=== PATIENT | female | born 1965 | race Caucasian/White ===

== ENCOUNTER → 2018-02-26 07:51 | Outpatient (CLI) | payer OTHER, SELFPAY ==
--- NOTE | 2018-02-26 | DI.MG.S_ITS ---
BILATERAL DIGITAL SCREENING MAMMOGRAM 3D/2D WITH CAD: 02/26/2018 CLINICAL: Routine screening. Family history of breast cancer. Comparison is made to exams dated: 09/06/2013 mammogram, 03/26/2012 mammogram, and 04/07/2010 mammogram - Located Within [facility]. The tissue of both breasts is heterogeneously dense. This may lower the sensitivity of mammography. Current study was also evaluated with a Computer Aided Detection (CAD) system. No significant masses, calcifications, or other findings are seen in either breast. There has been no significant interval change. IMPRESSION: NEGATIVE There is no mammographic evidence of malignancy. A 1 year screening mammogram is recommended. This exam was interpreted at Station ID: [id number]. NOTE: For mammograms, a report in lay terms will be sent to the patient. Approximately 15% of breast malignancies will not be visualized mammographically. In the management of a palpable breast mass, a negative mammogram must not discourage biopsy of a clinically suspicious lesion. Electronically Signed By: Kemal fuller/mireya:02/26/2018 21:16:45 letter sent: Normal Exam ACR BI-RADS Category 1: Negative [id number]
== END ==
PROVIDERS: PCP Family Medicine; Visit Provider Family Medicine
DX: Z12.31 Encounter for screening mammogram for malignant neoplasm of breast (principal); Z80.3 Family history of malignant neoplasm of breast
CPT/HCPCS: 77063; 77067

== ENCOUNTER 2019-06-10 16:38 | Observation (INO) | payer OTHER, SELFPAY ==
[2019-06-10] VITALS (8 sets, daily range): BP systolic 138–178; BP diastolic 77–94; PULSE 52–82; RESP 10–20; TEMP 36.2–36.6; O2SAT 97–99
--- NOTE | 2019-06-10 16:49 | DI.RAD.S_ITS ---
PROCEDURE: XR FINGER RT MIN 2V INDICATIONS: crush injury tip of 5th digit, cutting firewood TECHNIQUE: AP hand, 2 views of the fifth finger(s) acquired. COMPARISON: None. FINDINGS: Bones: No fractures or dislocations. No suspicious bony lesions. Soft tissues: No suspicious soft tissue calcifications. Soft tissue laceration is present within the distal tip of the fifth digit. IMPRESSION: Laceration of the fifth digit soft tissue tuft without visualized fracture. Dictated by: Scarlett Moreno M.D. on 06/10/2019 at 16:06 Approved by: Scarlett Moreno M.D. on 06/10/2019 at 16:08
[2019-06-10] MEDS: LIDOCAINE 2% INJ MDV 20 ML INJ (17:20)
[2019-06-10] MEDS: CEFAZOLIN 2 GM/100 ML FROZ.PIGGY IV (18:14)
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
--- NOTE | 2019-06-10 19:57 | PM.OP.1 ---
Operative Date/Time/Diagnoses Date of procedure: 06/10/19 Time of procedure: 19:58 Pre-op diagnosis: Right small finger tip amputation Post-op diagnosis: same Procedure & Clinicians Procedure: Right small finger completion amputation and closure Same procedure as scheduled: Yes Indications: This is a 54-year-old who got her right small finger caught in a trip pressure redder and had a partial amputation of her small finger. She is brought the operating room for completion amputation and closure. Surgeon: Goldie Roque Click Yes if Unassisted: Yes Anesthesia Type: Sedation and Local Operative Notes Findings: Contaminated open distal phalanx with amputation, and and we closed with a completion amputation. Closure Type: primary Specimen(s): none sent Estimated Blood Loss (mL): 20 Blood products transfused: none Tourniquet time (min): 6 Procedure in detail: Patient was brought to the operating room. IV antibiotics were given. An time-out was performed and the procedure was carefully confirmed. Patient's right upper extremity was prepped draped standard sterile fashion. The 5th finger was meticulously irrigated with normal saline. Patient was sedated. A dense digital block was performed with Marcaine without epinephrine. Good anesthesia was achieved. The distal tip was then meticulously irrigated with normal saline and scrubbed. There was some bleeding from the distal nail bed and the distal neurovascular bundles and the tourniquet was briefly elevated for a total of 6 minutes. The distal phalanx was carefully shortened with a bone cutter. There was a small amount of residual nail germinal matrix noted and it was felt that she could potentially have a small residual nail. The soft tissue and flaps were meticulously mobilized and closed without tension. Interrupted nylon was used for closure. The neurovascular bundles were carefully shortening. The wound was carefully dressed with Xeroform sterile 4x4s Oniel and a Coban. The patient was placed in a splint to protect her distal tip. She tolerated the procedure well. Complications: none Post-operative Condition: stable Disposition: same day surgery Plan for aftercare: Elevate right hand as tolerated. Take oral antibiotics for 1 week. Return to clinic in 10 days for a wound check and possible partial spur or complete suture removal. Protect tip with a splint.
[2019-06-10] MEDS: LACTATED RINGERS 1,000 ML 42 ML IV (20:00)
[2019-06-10] MEDS: CEFAZOLIN 1 GM/50 ML FROZ.PIGGY IV (20:00)
--- NOTE | 2019-06-10 20:38 | ED_ITS ---
HPI - Extremity Injury (Upper) <SENIA Cobos - Last Filed: 06/10/19 20:52> General Chief Complaint: Extremity Injury, Upper Stated Complaint: RIGHT HAND LITTLE FINGER GOT SMASHED Time Seen by Provider: 06/10/19 16:51 Source: patient and family Mode of arrival: Ambulatory Limitations: no limitations History of Present Illness HPI narrative: The patient is a 54-year-old female nonsmoker with history of hypothyroid and neutropenia who presents with a chief complaint of an injury to her right 5th digit she states it got crushed in a wood splitter she states that the tip of her finger was ripped off. She states that her tetanus is up-to-date. She denies any drug allergies she is not taking any for the pain. She presents with her she states that other than the wood splinter injury to the tip, she has no injuries to her finger or hand. Related Data Home Medications Medication Instructions Recorded Confirmed levothyroxine 88 mcg PO DAILY 06/10/19 06/10/19 Previous Rx's Medication Instructions Recorded cephalexin [Keflex] 500 mg PO TID #20 cap 06/10/19 hydrocodone-acetaminophen [Alhambra] 1 tab PO Q6H PRN #20 tab 06/10/19 Allergies Allergy/AdvReac Type Severity Reaction Status Date / Time No Known Drug Allergies Allergy Verified 06/10/19 16:49 Review of Systems <SENIA Cobos - Last Filed: 06/10/19 20:52> Review of Systems Narrative: GENERAL: Denies chills, fatigue, malaise, fever, sweats. HEENT: Denies sinus pain, ear pain, sore throat, difficulty swallowing, dizziness. RESPIRATORY: Denies dyspnea, cough, wheezing, hemoptysis, sputum. CARDIOVASCULAR: Denies chest pain, palpitations, orthopnea, edema, GASTROINTESTINAL: Denies nausea, vomiting, abdominal pain, diarrhea, constipation, melena. : Denies dysuria, frequency, incontinence, hematuria, urinary retention. MUSCULOSKELETAL: See HPI SKIN: See HPI NEUROLOGIC: Denies weakness, headache, numbness, change in speech, confusion, seizures, incoordination. PSYCHIATRIC: No concerning psychosocial issues. 12 point review of systems is negative except for those stated above Exam <SENIA Cobos - Last Filed: 06/10/19 20:52> Narrative Exam Narrative: GENERAL: This is a well-nourished, well-developed patient, appears anxious HEAD: Atraumatic. Normocephalic. No temporal or scalp tenderness. EYES: Pupils equal round and reactive. Extraocular motions intact. No scleral icterus. No injection or drainage. ENT: Nose without bleeding, purulent drainage or septal hematoma. Throat without erythema, tonsillar hypertrophy or exudate. Uvula midline. Airway patent. NECK: Trachea midline. No JVD or lymphadenopathy. Supple, nontender, no meningeal signs. CARDIOVASCULAR: Regular rate and rhythm RESPIRATORY: No cough. No increased respiratory effort. No accessory muscle use. EXTREMITIES: Missing tissue noted at tip right 5th finger. Almost entire palmar aspect of distal phalanx removed, with visible bone and tendon. Nail is in place. Full range of motion noted right 5th finger. Oozing blood. BACK: Nontender without deformity or crepitance. No flank tenderness. NEURO: AOx3. SKIN: See extremity exam Initial Vital Signs Initial Vital Signs: Vital Signs Temperature 97.9 F 06/10/19 16:41 Pulse Rate 69 06/10/19 16:41 Respiratory Rate 20 06/10/19 16:41 Blood Pressure 178/94 H 06/10/19 16:41 Pulse Oximetry 99 06/10/19 16:41 <Yrn Canas DO - Last Filed: 06/11/19 06:56> Initial Vital Signs Initial Vital Signs: Vital Signs Temperature 97.9 F 06/10/19 16:41 Pulse Rate 69 06/10/19 16:41 Respiratory Rate 20 06/10/19 16:41 Blood Pressure 178/94 H 06/10/19 16:41 Pulse Oximetry 99 06/10/19 16:41 Procedures <OCTAVIANO Cobos - Last Filed: 06/10/19 20:52> Nerve Block Nerve Block 1: Time out performed: Yes Local Anesthetic: lidocaine 2% Amount of anesthesia used (mL): 4 Side: left and right Nerve Blocks: digital Procedure Successful: Yes Patient Tolerated Procedure: Well Complications: none Course <OCTAVIANO Cobos - Last Filed: 06/10/19 20:52> Orders Ordered: Discontinued Medications Bupivacaine HCl (Sensorcaine 0.5% (Pf)) 30 ml INJ NOW ONE Stop: 06/10/19 20:50 Last Admin: 06/10/19 20:49 Dose: 11 ml Documented by: KAYLA Fentanyl (Sublimaze) 0 mcg IV Q5M PRN PRN Reason: Pain, Moderate (4-6) Cefazolin Sodium/Dextrose (Ancef) 2 gm in 100 mls @ 200 mls/hr IV NOW ONE Stop: 06/10/19 18:19 Last Infusion: 06/10/19 18:54 Dose: 0 mls/hr Documented by: Admin: 06/10/19 18:14 Dose: 200 mls/hr Documented by: JAZ Lactated Ringer's (Lactated Ringers) 1,000 mls @ 42 mls/hr IV CONT MAE Last Infusion: 06/10/19 21:17 Dose: 0 mls/hr Documented by: MARY BETH Admin: 06/10/19 20:00 Dose: 42 mls/hr Documented by: TAMMY Cefazolin Sodium/Dextrose (Ancef) 1 gm in 50 mls @ 200 mls/hr IV NOW ONE Stop: 06/10/19 21:01 Last Infusion: 06/10/19 20:05 Dose: 0 mls/hr Documented by: Admin: 06/10/19 20:00 Dose: 200 mls/hr Documented by: TAMMY Lidocaine HCl (Xylocaine 2%) 20 ml INJ INTRA-OP ONE Stop: 06/10/19 16:54 Last Admin: 06/10/19 17:20 Dose: 20 ml Documented by: AJZ Morphine Sulfate (Morphine) 4 mg IV NOW ONE Stop: 06/10/19 19:20 Ondansetron HCl (Zofran) 4 mg IV NOW PRN PRN Reason: Nausea And Vomiting Oxycodone/Acetaminophen (Percocet 5/325) 1 tab PO NOW PRN PRN Reason: Mild or Moderate Pain Vital Signs Vital signs: Vital Signs - 8 hr 06/10/19 16:41 06/10/19 18:00 Temperature 97.9 F Pulse Rate 69 82 Respiratory Rate 20 Blood Pressure 178/94 H Blood Pressure [Left Arm] 142/81 H Pulse Oximetry 99 97 <Yrn Canas, - Last Filed: 06/11/19 06:56> Orders Ordered: Discontinued Medications Bupivacaine HCl (Sensorcaine 0.5% (Pf)) 30 ml INJ NOW ONE Stop: 06/10/19 20:50 Last Admin: 06/10/19 20:49 Dose: 11 ml Documented by: KAYLA Fentanyl (Sublimaze) 0 mcg IV Q5M PRN PRN Reason: Pain, Moderate (4-6) Cefazolin Sodium/Dextrose (Ancef) 2 gm in 100 mls @ 200 mls/hr IV NOW ONE Stop: 06/10/19 18:19 Last Infusion: 06/10/19 18:54 Dose: 0 mls/hr Documented by: Admin: 06/10/19 18:14 Dose: 200 mls/hr Documented by: JAZ Lactated Ringer's (Lactated Ringers) 1,000 mls @ 42 mls/hr IV CONT MAE Last Infusion: 06/10/19 21:17 Dose: 0 mls/hr Documented by: MARY BETH Admin: 06/10/19 20:00 Dose: 42 mls/hr Documented by: TAMMY Cefazolin Sodium/Dextrose (Ancef) 1 gm in 50 mls @ 200 mls/hr IV NOW ONE Stop: 06/10/19 21:01 Last Infusion: 06/10/19 20:05 Dose: 0 mls/hr Documented by: Admin: 06/10/19 20:00 Dose: 200 mls/hr Documented by: TAMMY Lidocaine HCl (Xylocaine 2%) 20 ml INJ INTRA-OP ONE Stop: 06/10/19 16:54 Last Admin: 06/10/19 17:20 Dose: 20 ml Documented by: JAZ Morphine Sulfate (Morphine) 4 mg IV NOW ONE Stop: 06/10/19 19:20 Ondansetron HCl (Zofran) 4 mg IV NOW PRN PRN Reason: Nausea And Vomiting Oxycodone/Acetaminophen (Percocet 5/325) 1 tab PO NOW PRN PRN Reason: Mild or Moderate Pain Vital Signs Vital signs: Vital Signs - 8 hr 06/10/19 16:41 06/10/19 18:00 Temperature 97.9 F Pulse Rate 69 82 Respiratory Rate 20 Blood Pressure 178/94 H Blood Pressure [Left Arm] 142/81 H Pulse Oximetry 99 97 MDM - Extremity Injury (Upper) <OCTAVIANO Cobos - Last Filed: 06/10/19 20:52> Imaging Data Finger x-ray: Radiologist's impression: [address] [address] XRay Report Signed Patient: Valerie Jordan [facility]#: [id number] : 1965Acct:[id number] Age/Sex: 54 / FDate of Service: 06/10/19 Loc: ED Accession Number: [id number] Procedure: XR finger RT min 2V Ordering Provider: Yrn Canas D.O. PROCEDURE: XR FINGER RT MIN 2V INDICATIONS: crush injury tip of 5th digit, cutting firewood TECHNIQUE: AP hand, 2 views of the fifth finger(s) acquired. COMPARISON: None. FINDINGS: Bones: No fractures or dislocations. No suspicious bony lesions. Soft tissues: No suspicious soft tissue calcifications. Soft tissue laceration is present within the distal tip of the fifth digit. IMPRESSION: Laceration of the fifth digit soft tissue tuft without visualized fracture. Dictated by: Scarlett Moreno M.D. on 06/10/2019 at 16:06 Approved by: Scarlett Moreno M.D. on 06/10/2019 at 16:08 [facility] Narrative Medical decision making narrative: The patient is a 54-year-old female who presents with a chief complaint of a finger injury resulting from a wood clipper. Patient's tetanus is up-to-date. She does have a significant injury, with visible bone and tendon. She was given IV Ancef I spoke with Dr. Roque, from [facility] who reviewed the case and due to the exposed bone, left tissue etc brought the patient to the operating room. Patient was given 2 g Ancef in the emergency department, her wound was cleansed and she had a digital block. Patient states understanding and has no questions or concerns. Discharge Plan Departure Patient Disposition: Admitted as Observation Clinical Impression: Finger injury Qualifiers: Encounter type: initial encounter Laterality: right Qualified Code(s): S69.91XA - Unspecified injury of right wrist, hand and finger(s), initial encounter Discharge Date/Time: 06/10/19 20:29 Admit Date/Time: 06/10/19 19:48 Admit Provider: Goldie Roque <Yrn Canas DO - Last Filed: 06/11/19 06:56> Sign Out Provider Sign Out Attestation: Dr Canas Co-Sign Statement: I was available for consultation during this patient's emergency department visit. This chart is signed by myself for administrative purposes only. I did not have direct contact with this patient during this visit. They were seen independently by the APC.
--- NOTE | 2019-06-10 20:42 | SUR.PHASEI ---
Erythema to candido eyes, pt reported this is normal for her
[2019-06-10] MEDS: BUPIVACAINE 0.5% (PF) VIAL 30 ML INJ (20:49)
== END 2019-06-10 21:17 | disposition home or self-care (01) ==
LOC: ED 16:51 → AC 19:49
PROVIDERS: Admitting Provider Orthopaedic Surgery; Emergency Provider Nurse Practitioner Family; PCP Family Medicine; Visit Provider Orthopaedic Surgery
PROC: (CPT 26236; principal; 2019-06-10 19:30)
DX: S68.626A Partial traumatic transphalangeal amputation of right little finger, initial encounter (principal); M79.644 Pain in right finger(s); W31.89XA Contact with other specified machinery, initial encounter; E03.9 Hypothyroidism, unspecified
CPT/HCPCS: 26236; 64450; 73140; 96361; 96365; 96375; 99283; 99284; G0378; J0690; J2250; J2704; J3010

== ENCOUNTER 2019-07-29 01:51 | Emergency (ER) | payer OTHER, SELFPAY ==
[2019-07-29 02:08] VITALS: BP 128/76; PULSE 73; RESP 18; TEMP 37.1; O2SAT 99; BMI 20.5
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
[2019-07-29 04:32] LABS: Add Manual Diff / Slide Review NO; Basophils Absolute Auto 0 /uL (0-100); Basophils Percent Auto 0.4 % (0-2); Eosinophils Absolute Auto 0 /uL (0-450); Eosinophils Percent Auto 0.6 % (2-4); Hematocrit 34.8 % (36-46); Hemoglobin 12.2 g/dL (12.0-16.0); Lymphocytes Absolute Auto 1200 /uL (1100-4500); Lymphocytes Percent Auto 26.2 % (25-40); Mean Corpuscular HGB Conc 35.1 % (30-36); Mean Corpuscular Hemoglobin 31.3 PG (26-34); Mean Corpuscular Volume 89.1 fL (80-100); Monocytes Absolute Auto 300 /uL (0-900); Monocytes Percent Auto 7.6 % (3-14); Neutrophils Absolute Auto 3000 /uL (1500-7000); Neutrophils Percent Auto 65.2 % (50-75); Platelet Count 148 X10^3/uL (150-400); Red Blood Cell Count 3.91 X10^6/uL (4.0-5.2); Red Cell Distribution Width 12.7 % (11.6-14.8); White Blood Cell Count 4.6 X10^3/uL (4.5-11.0)
[2019-07-29 04:42] LABS: Blood Urea Nitrogen 12 mg/dL (7-17); Calcium 8.8 mg/dL (8.4-10.2); Carbon Dioxide 27 mmol/L (22-32); Chloride 103 mmol/L (98-107); Estimated Glomerular Filt Rate > 60.0 mL/min (>60); Glucose 89 mg/dL (70-100); HEMOLYSIS 32 (0-50); Potassium 3.7 mmol/L (3.4-5.1); Sodium 137 mmol/L (137-145)
[2019-07-29 04:51] VITALS: BP 124/62; PULSE 62; RESP 16; O2SAT 98
== END 2019-07-29 05:08 | disposition short-term general hospital (02) ==
PROVIDERS: Emergency Provider Emergency Medicine; PCP Family Medicine
DX: S82.251A Displaced comminuted fracture of shaft of right tibia, initial encounter for closed fracture (principal); S82.451A Displaced comminuted fracture of shaft of right fibula, initial encounter for closed fracture; Y93.23 Activity, snow (alpine) (downhill) skiing, snowboarding, sledding, tobogganing and snow tubing
CPT/HCPCS: 36415; 73590; 73700; 80048; 85025; 99284; 99291

== ENCOUNTER → 2020-11-03 16:45 | Outpatient (CLI) | payer OTHER, SELFPAY ==
--- NOTE | 2020-11-03 | DI.MG.S_ITS ---
BILATERAL DIGITAL SCREENING MAMMOGRAM 3D/2D WITH CAD: 11/03/2020 CLINICAL: Routine screening. Comparison is made to exams dated: 02/26/2018 mammogram, 09/06/2013 mammogram, and 03/26/2012 mammogram - [facility]. The tissue of both breasts is heterogeneously dense. This may lower the sensitivity of mammography. Current study was also evaluated with a Computer Aided Detection (CAD) system. There are 0.5 cm grouped coarse calcifications in the right breast at 2 o'clock middle depth. These are more prominent and increased in number. No other significant masses, calcifications, or other findings are seen in either breast. IMPRESSION: INCOMPLETE: NEEDS ADDITIONAL IMAGING EVALUATION The 0.5 cm grouped coarse calcifications in the right breast are indeterminate. Diagnostic mammogram for additional views to include mediolateral and spot magnification views is recommended. This exam was interpreted at Station ID: [id number]. NOTE: For mammograms, a report in lay terms will be sent to the patient. Approximately 15% of breast malignancies will not be visualized mammographically. In the management of a palpable breast mass, a negative mammogram must not discourage biopsy of a clinically suspicious lesion. Electronically Signed By: Trent Brandt M.D. aty/:11/04/2020 07:58:10 letter sent: Additional Imaging Needed ACR BI-RADS Category 0: Incomplete [id number]
== END ==
PROVIDERS: PCP Family Medicine; Referring Provider Family Medicine; Visit Provider Family Medicine
DX: Z12.31 Encounter for screening mammogram for malignant neoplasm of breast (principal)
CPT/HCPCS: 77063; 77067

== ENCOUNTER → 2020-11-10 08:55 | Outpatient (CLI) | payer OTHER, SELFPAY ==
--- NOTE | 2020-11-10 | DI.MG.S_ITS ---
UNILATERAL RIGHT DIGITAL DIAGNOSTIC MAMMOGRAM 3D/2D WITH ADDITIONAL VIEWS: 11/10/2020 CLINICAL: Additional evaluation requested from prior study. Comparison is made to exams dated: 11/03/2020 mammogram, 02/26/2018 mammogram, and 09/06/2013 mammogram - [facility]. The tissue of right breast is heterogeneously dense. This may lower the sensitivity of mammography. There are grouped fine and punctate calcifications in the right breast central to the nipple anterior depth. A few of these demonstrate layering on the lateral view. No other significant masses or calcifications are seen in the breast. IMPRESSION: PROBABLY BENIGN The grouped fine punctate calcifications in the right breast resemble milk of calcium and are probably benign. A follow-up mammogram in 6 months is recommended. A follow-up mammogram in 6 months is recommended to demonstrate stability. This exam was interpreted at Station ID: [id number]. NOTE: For mammograms, a report in lay terms will be sent to the patient. Approximately 15% of breast malignancies will not be visualized mammographically. In the management of a palpable breast mass, a negative mammogram must not discourage biopsy of a clinically suspicious lesion. Electronically Signed By: Josh chatterjee/:11/10/2020 09:16:45 letter sent: Followup Recommended ACR BI-RADS Category 3: Probably benign [id number]
== END ==
PROVIDERS: PCP Family Medicine; Referring Provider Family Medicine; Visit Provider Family Medicine
DX: R92.8 Other abnormal and inconclusive findings on diagnostic imaging of breast (principal); R92.1 Mammographic calcification found on diagnostic imaging of breast
CPT/HCPCS: 77065; G0279

== ENCOUNTER → 2021-05-19 08:22 | Outpatient (CLI) | payer OTHER, SELFPAY ==
--- NOTE | 2021-05-19 08:24 | DI.MG.S_ITS ---
UNILATERAL RIGHT DIGITAL DIAGNOSTIC MAMMOGRAM 3D/2D SHORT-TERM FOLLOW-UP: 05/19/2021 CLINICAL: Short term follow up of the right breast. Comparison is made to exams dated: 11/10/2020 mammogram, 11/03/2020 mammogram, 02/26/2018 mammogram, and 09/06/2013 mammogram - [facility]. The tissue of right breast is heterogeneously dense. This may lower the sensitivity of mammography. Stable grouped fine punctate calcifications in the right breast central to the nipple anterior depth. A few of these demonstrate layering on the lateral view. No other significant masses or calcifications are seen in the breast. IMPRESSION: PROBABLY BENIGN Stable grouped fine punctate calcifications in the right breast have a differential diagnosis of milk of calcium and are probably benign. A follow-up mammogram in 6 months is recommended to demonstrate stability. Patient will be due for left breast mammogram at that time. This exam was interpreted at Station ID: [id number]. NOTE: For mammograms, a report in lay terms will be sent to the patient. Approximately 15% of breast malignancies will not be visualized mammographically. In the management of a palpable breast mass, a negative mammogram must not discourage biopsy of a clinically suspicious lesion. Electronically Signed By: Momo Aguirre M.D. slc/:05/19/2021 09:19:58 letter sent: Followup Recommended ACR BI-RADS Category 3: Probably benign [id number]
== END ==
PROVIDERS: PCP Family Medicine; Referring Provider Family Medicine; Visit Provider Family Medicine
DX: R92.8 Other abnormal and inconclusive findings on diagnostic imaging of breast (principal); R92.1 Mammographic calcification found on diagnostic imaging of breast
CPT/HCPCS: 77065; G0279

== ENCOUNTER → 2021-12-10 08:41 | Outpatient (CLI) | payer OTHER, SELFPAY ==
--- NOTE | 2021-12-10 | DI.MG.S_ITS ---
BILATERAL DIGITAL DIAGNOSTIC MAMMOGRAM 3D/2D SHORT-TERM FOLLOW-UP: 12/10/2021 CLINICAL: Short term follow up of the right breast, due for bilateral imaging. Comparison is made to exams dated: 05/19/2021 mammogram, 11/10/2020 mammogram, 11/03/2020 mammogram, and 02/26/2018 mammogram - [facility]. The tissue of both breasts is heterogeneously dense. This may lower the sensitivity of mammography. There are grouped fine, punctate and occasional layering rim calcifications in the right breast central to the nipple anterior depth. These are not significantly changed. No other significant masses, calcifications, or other findings are seen in either breast. IMPRESSION: PROBABLY BENIGN The grouped calcifications in the right breast resemble milk of calcium and are probably benign. Mammograms are otherwise stable. A follow-up right mammogram in 6 months is recommended to demonstrate continued stability. Findings and recommendations were conveyed to the patient at time of exam. This exam was interpreted at Station ID: [id number]. NOTE: For mammograms, a report in lay terms will be sent to the patient. Approximately 15% of breast malignancies will not be visualized mammographically. In the management of a palpable breast mass, a negative mammogram must not discourage biopsy of a clinically suspicious lesion. Electronically Signed By: Eldaia carlos/:12/10/2021 09:18:21 letter sent: Followup Recommended ACR BI-RADS Category 3: Probably benign [id number]
== END ==
PROVIDERS: PCP Family Medicine; Referring Provider Family Medicine; Visit Provider Family Medicine
DX: R92.8 Other abnormal and inconclusive findings on diagnostic imaging of breast (principal); R92.1 Mammographic calcification found on diagnostic imaging of breast
CPT/HCPCS: 77066; G0279

== ENCOUNTER 2022-02-02 13:36 | Emergency (ER) | payer OTHER, SELFPAY ==
[2022-02-02 13:41] VITALS: BP 127/73; PULSE 79; RESP 18; TEMP 37; O2SAT 99; BMI 21.2
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
[2022-02-02 15:50] VITALS: PULSE 64; O2SAT 99
[2022-02-02 15:51] VITALS: BP 190/97; PULSE 66; O2SAT 99
[2022-02-02 15:52] VITALS: BP 173/82; PULSE 72; O2SAT 98
[2022-02-02] MEDS: ACETAMINOPHEN 325 MG TABLET 650 MG PO (16:02)
[2022-02-02] MEDS: LIDOCAINE 2% INJ MDV 20 ML INJ (16:03)
--- NOTE | 2022-02-02 16:52 | ED_ITS ---
HPI - Extremity Injury (Upper) General Chief Complaint: Extremity Injury, Upper Stated Complaint: Fall- thinks broken wrist Time Seen by Provider: 02/02/22 15:44 Source: patient Mode of arrival: Ambulatory History of Present Illness HPI narrative: Patient is a healthy 57-year-old female presents with left wrist injury. She says that she was falling and caught herself with her hands outstretched. She has had multiple orthopedic injuries before. Including on her left forearm were she has plates and screws is. No numbness tingling or weakness. She is in quite a bit of pain. Related Data Home Medications Medication Instructions Recorded Confirmed levothyroxine 88 mcg tablet 88 mcg PO DAILY 06/10/19 06/10/19 Previous Rx's Medication Instructions Recorded cephalexin 500 mg capsule (Keflex) 500 mg PO TID #20 caps 06/10/19 hydrocodone 5 mg-acetaminophen 325 1 tab PO Q6H PRN pain #20 tabs 06/10/19 mg tablet ([place]) Allergies Allergy/AdvReac Type Severity Reaction Status Date / Time No Known Drug Allergies Allergy Verified 02/02/22 13:43 Review of Systems Review of Systems Narrative: GENERAL: Denies chills,fever HEENT: Denies throat pain RESPIRATORY: Denies dyspnea, cough, wheezing CARDIOVASCULAR: Denies chest pain, palpitations GASTROINTESTINAL: Denies nausea, vomiting MUSCULOSKELETAL: See HPI SKIN: No rash, no laceration, no pruritus NEUROLOGIC: Denies weakness, dizziness, headache, numbness 8 point review of systems is negative except for those stated above and HPI Patient History Social History Smoking Status: Never smoker Smoking Status: Never smoker alcohol intake frequency: 0-2 drinks per day Substance Use Type: does not use Exam Initial Vital Signs Initial Vital Signs: Vital Signs Temperature 98.6 F 02/02/22 13:41 Pulse Rate 79 02/02/22 13:41 Respiratory Rate 18 02/02/22 13:41 Blood Pressure 127/73 02/02/22 13:41 Pulse Oximetry 99 02/02/22 13:41 Oxygen Delivery Method 02/02/22 13:41 GENERAL: Alert anxious 57-year-old female CARDIOVASCULAR: peripheral pulses in tact, cap refill <2 sec RESPIRATORY: No respiratory distress, speaks in full sentences without difficulty EXTREMITIES: Normal range of motion, no clubbing or edema. Neurovascularly intact Left his upper extremity contusion noted over dorsal side distal radius. Minimal bony deformities. Strong distal radial pulse. Able to move all fingers. No significant swelling or deformity of forearm. NEUROLOGICAL: Cranial nerves II through XII grossly intact. Normal gait and speech. SKIN: Warm, dry, no petechiae, no rashes or lesions. Procedures Nerve Block Nerve Block 1: Local Anesthetic: lidocaine 1% Amount of anesthesia used (mL): 5 Side: left Nerve Blocks: hematoma block Procedure Successful: Yes Patient Tolerated Procedure: Well Orthopedic Fracture Reduction Fracture #1: Side: left Fracture Reduction Location: radius and ulna Analgesia: hematoma block Technique: direct manipulation and traction/counter-traction Post Reduction X-rays Demonstrate: acceptable reduction Post-reduction neuro exam: intact Post-reduction vascular exam: intact Splint Applied: Yes Patient Tolerated Procedure: Well Orthopedic Splinting/Casting Injury #1: Upper Extremity Injury Location: wrist Upper Extremity Immobilizer: sling/shoulder immobilizer and sugar tong splint Post splinting neuro exam: intact Post splinting vascular exam: intact Placed by: Provider Course Orders Ordered: ED Orders 02/02/22 13:44 XR wrist LT min 3V Stat 02/02/22 17:18 XR wrist LT 2V Stat Discontinued Medications Acetaminophen (Acetaminophen 325 Mg Tablet) 650 mg PO NOW ONE Stop: 02/02/22 15:58 Last Admin: 02/02/22 16:02 Dose: 650 mg Documented By: VINICIUS Hydromorphone HCl (Hydromorphone 2 Mg Inj) 1 mg SUBCUT Q4H PRN PRN Reason: Pain, Severe (7-10) Hydromorphone HCl (Hydromorphone 1 Mg Inj) 1 mg IM NOW ONE Stop: 02/02/22 16:54 Last Admin: 02/02/22 16:58 Dose: 1 mg Documented By: VINICIUS Lidocaine HCl (Lidocaine 2% Inj Mdv) 20 ml INJ INTRA-OP ONE Stop: 02/02/22 15:48 Last Admin: 02/02/22 16:03 Dose: 20 ml Documented By: VINICIUS Vital Signs Vital signs: Vital Signs - 8 hr 02/02/22 13:41 02/02/22 15:50 02/02/22 15:51 Temperature 98.6 F Pulse Rate 79 64 66 Respiratory Rate 18 Blood Pressure 127/73 Pulse Oximetry 99 99 99 Oxygen Delivery Method Room Air 02/02/22 15:51 02/02/22 15:52 02/02/22 15:52 Temperature Pulse Rate 72 Respiratory Rate Blood Pressure 190/97 H 173/82 H Pulse Oximetry 98 Oxygen Delivery Method 02/02/22 18:14 Temperature Pulse Rate 64 Respiratory Rate 18 Blood Pressure 189/79 H Pulse Oximetry 98 Oxygen Delivery Method Room Air MDM - Extremity Injury (Upper) Imaging Data Extremity x-ray #1: Radiologist's Impression: Signed Patient: Valerie Jordan MR#: [id number] : 1965 Acct:[id number] Age/Sex: 57 / F Date of Service: 02/02/22 Loc: ED Accession Number: [id number] ?? Procedure: XR wrist LT min 3V Ordering Provider: Kailey Wilkinson D.O. PROCEDURE:? XR WRIST LT MIN 3V ? INDICATIONS: fall. L wrist swelling. Hx of compound fx to same arm ? TECHNIQUE:? 3 views of the wrist were acquired.? ? COMPARISON:? None. ? FINDINGS:? ? Bones:? There are postsurgical changes from remote open reduction and internal fixation of distal left radial and ulnar diaphyseal fractures.? There are acute fractures.? Acute comminuted, intra-articular fracture of the distal left radius.? Acute fracture of the distal left ulna styloid tip. ? Scaphoid view:? Possible scaphoid waist fracture. ? Soft tissues:? No suspicious soft tissue calcifications.? ? IMPRESSION:? ? 1. Mildly comminuted, intra-articular fracture of the distal left radius. ? 2. Likely acute, minimally displaced fracture of the distal ulnar styloid tip. ? 3. Suspected nondisplaced scaphoid waist fracture. ? 4. Postsurgical changes from remote ORIF of distal left radial and ulnar fractures.? ? ? Dictated by: Trent Brandt M.D. on 02/02/2022 at 14:44 ? ? Approved by: Trent Brandt M.D. on 02/02/2022 at 14:47 ? Extremity x-ray #2: Radiologist's Impression: XRay Report Signed Patient: Valerie Jordan MR#: [id number] : 1965 Acct:[id number] Age/Sex: 57 / F Date of Service: 02/02/22 Loc: ED Accession Number: [id number] ?? Procedure: XR wrist LT 2V Ordering Provider: Kailey Wilkinson D.O. PROCEDURE:? XR WRIST LT 2V ? INDICATIONS: check splint ? TECHNIQUE:? 2 views of the wrist were acquired.? ? COMPARISON:? [facility], CR, XR WRIST LT MIN 3V, 02/02/2022, 13:53. ? FINDINGS:? ? Bones:? Plate and screw fixation can be seen of the radius and ulna.? No findings of hardware failure or hardware loosening are seen. ? Fractures are seen of the mid shafts of the radius and ulna. ? There is an additional fracture seen of the distal radius, with intra-articular involvement.? There is a mildly to moderately displaced ulnar styloid fracture.? ? The overlying casting material limits evaluation of fine detail. ? Soft tissues:? No suspicious soft tissue calcifications.? ? ? IMPRESSION:? Unremarkable postoperative hardware of the radius and ulna. ? Fractures of the distal radius and ulnar styloid can be seen. ? ? Dictated by: Luis Reyes M.D. on 02/02/2022 at 16:39 ? ? [facility] Narrative Medical decision making narrative: Patient has a distal radius radial fracture mildly displaced improved after reduction. Patient was in extreme amount of pain during her entire emergency department stay. He is given a shot of Dilaudid she had hematoma block which she barely tolerated. She is offered hydrocodone oxycodone Percocet [place] for pain medications at home. However she declined at this time stating that they make her extremely nauseous she was offered Zofran 4 as well. At this time she would like to just take Tylenol. Discharge Plan Departure Patient Disposition: Home Clinical Impression: Fracture of wrist Instructions: DI for Wrist Fracture Activity Restrictions/Additional Instructions: *You have been diagnosed with wrist fracture *What to do: Keep arm in splint at all times. May use sling as needed. You may ice through splint. This may need surgery *Continue to take medications as directed Tylenol 1000 mg every 6 hours if needed for pain *Follow up with your primary care provider in 2-3 days or call [phone] Call [facility] orthopedics tomorrow to schedule follow-up appointment *Return to ER if you should have increasing pain swelling, numbness tingling or any new, worsening or concerning symptoms Prescriptions: No Action levothyroxine 88 mcg tablet 88 mcg PO DAILY Label Comments: TAKE 1 TABLET (88 MCG TOTAL) BY MOUTH DAILY cephalexin [Keflex] 500 mg capsule 500 mg PO TID Qty: 20 1RF hydrocodone-acetaminophen [[place]] 5-325 mg tablet 1 tab PO Q6H PRN (Reason: pain) Qty: 20 0RF Referrals: [facility] [Provider Group] Fadi Zepeda MD [Primary Care Provider] - Visit Report Forms: Patient Portal/API
[2022-02-02] MEDS: HYDROMORPHONE 1 MG INJ IM (16:58)
--- NOTE | 2022-02-02 17:18 | DI.RAD.S_ITS ---
PROCEDURE: XR WRIST LT 2V INDICATIONS: check splint TECHNIQUE: 2 views of the wrist were acquired. COMPARISON: [facility], CR, XR WRIST LT MIN 3V, 02/02/2022, 13:53. FINDINGS: Bones: Plate and screw fixation can be seen of the radius and ulna. No findings of hardware failure or hardware loosening are seen. Fractures are seen of the mid shafts of the radius and ulna. There is an additional fracture seen of the distal radius, with intra-articular involvement. There is a mildly to moderately displaced ulnar styloid fracture. The overlying casting material limits evaluation of fine detail. Soft tissues: No suspicious soft tissue calcifications. IMPRESSION: Unremarkable postoperative hardware of the radius and ulna. Fractures of the distal radius and ulnar styloid can be seen. Dictated by: Luis Reyes M.D. on 02/02/2022 at 16:39 Approved by: Luis Reyes M.D. on 02/02/2022 at 16:40
[2022-02-02 18:14] VITALS: BP 189/79; PULSE 64; RESP 18; O2SAT 98
== END 2022-02-02 18:18 | disposition home or self-care (01) ==
PROVIDERS: Emergency Provider Emergency Medicine; PCP Family Medicine
DX: S52.502A Unspecified fracture of the lower end of left radius, initial encounter for closed fracture (principal); W19.XXXA Unspecified fall, initial encounter
CPT/HCPCS: 25605; 29125; 64450; 73100; 73110; 96372; 99284; J1170

== ENCOUNTER → 2022-06-28 09:43 | Outpatient (CLI) | payer OTHER, SELFPAY ==
--- NOTE | 2022-06-28 | DI.MG.S_ITS ---
UNILATERAL RIGHT DIGITAL DIAGNOSTIC MAMMOGRAM 3D/2D SHORT-TERM FOLLOW-UP: 06/28/2022 CLINICAL: Short term follow up of the right breast. Comparison is made to exams dated: 12/10/2021 mammogram, 05/19/2021 mammogram, 11/10/2020 mammogram, 11/03/2020 mammogram, and 02/26/2018 mammogram - [facility]. The right breast is heterogeneously dense, which may obscure small masses (category c / 51-75% glandular tissue). There are stable grouped fine punctate calcifications in the right breast central to the nipple anterior depth. No other significant masses or calcifications are seen in the breast. IMPRESSION: PROBABLY BENIGN Stable grouped fine punctate calcifications in the right breast are probably benign. A follow-up mammogram in 6 months is recommended to demonstrate long-term stability. Patient will be due for left breast mammogram at that time. Based on the Tyrer Cuzick model (a risk assessment model) the patient's lifetime risk is 14.0% and her 10 year risk is 4.9%. According to the ACR, ACS, and NCCN guidelines, an annual breast MRI exam along with mammogram is recommended if the patient's lifetime risk is 20% or greater. This exam was interpreted at Station ID: [id number]. NOTE: For mammograms, a report in lay terms will be sent to the patient. Approximately 15% of breast malignancies will not be visualized mammographically. In the management of a palpable breast mass, a negative mammogram must not discourage biopsy of a clinically suspicious lesion. Electronically Signed By: Momo Aguirre M.D. slc/:06/28/2022 10:10:16 letter sent: Followup Recommended ACR BI-RADS Category 3: Probably benign 3343F
== END ==
PROVIDERS: PCP Family Medicine; Referring Provider Family Medicine; Visit Provider Family Medicine
DX: R92.8 Other abnormal and inconclusive findings on diagnostic imaging of breast (principal); R92.2 Inconclusive mammogram
CPT/HCPCS: 77065; G0279

== ENCOUNTER → 2022-12-30 10:07 | Outpatient (CLI) | payer OTHER, SELFPAY ==
--- NOTE | 2022-12-30 | DI.MG.S_ITS ---
BILATERAL DIGITAL DIAGNOSTIC MAMMOGRAM 3D/2D: 12/30/2022 CLINICAL: Short term follow up of the right breast, due for bilateral imaging. Comparison is made to exams dated: 06/28/2022 mammogram, 12/10/2021 mammogram, 05/19/2021 mammogram, 11/10/2020 mammogram, and 11/03/2020 mammogram - [facility]. Both breasts are heterogeneously dense, which may obscure small masses (category c / 51-75% glandular tissue). There are stable grouped fine punctate calcifications in the right breast central to the nipple anterior depth. No other significant masses, calcifications, or other findings are seen in either breast. IMPRESSION: BENIGN Stable grouped fine punctate calcifications in the right breast central to the nipple anterior depth have demonstrated two years of stability and is consistent with a benign process. There is no mammographic evidence of malignancy. A 1 year screening mammogram is recommended. Findings and recommendations were conveyed to the patient during today's evaluation. Based on the Tyrer Cuzick model (a risk assessment model) the patient's lifetime risk is 14.0% and her 10 year risk is 4.9%. According to the ACR, ACS, and NCCN guidelines, an annual breast MRI exam along with mammogram is recommended if the patient's lifetime risk is 20% or greater. This exam was interpreted at Station ID: [id number]. NOTE: For mammograms, a report in lay terms will be sent to the patient. Approximately 15% of breast malignancies will not be visualized mammographically. In the management of a palpable breast mass, a negative mammogram must not discourage biopsy of a clinically suspicious lesion. Electronically Signed By: Trent Brandt M.D. at/:12/30/2022 15:14:11 letter sent: Normal Exam ACR BI-RADS Category 2: Benign Finding(s) 3342F
== END ==
PROVIDERS: PCP Family Medicine; Referring Provider Family Medicine; Visit Provider Family Medicine
DX: R92.8 Other abnormal and inconclusive findings on diagnostic imaging of breast (principal); R92.1 Mammographic calcification found on diagnostic imaging of breast
CPT/HCPCS: 77066; G0279

== ENCOUNTER → 2023-05-17 08:28 | Outpatient (CLI) | payer OTHER, SELFPAY ==
--- NOTE | 2023-05-17 08:29 | DI.RAD.S_ITS ---
PROCEDURE: XR LUMBAR SPINE MIN 4V INDICATIONS: BACK PAIN TECHNIQUE: 5 views of the lumbar spine were acquired, including bilateral oblique views. COMPARISON: None. FINDINGS: Bones: 5 nonrib-bearing vertebrae are present. Lower lumbar facet arthropathy. Degenerative anterolisthesis of L4 on L5 measures 7 mm. No vertebral body compression fractures. No suspicious bony lesions. Soft tissues: Overlying bowel gas pattern is normal. No suspicious soft tissue calcifications. Oblique images: No pars defects. IMPRESSION: 1. Lower lumbar facet arthropathy. Resultant anterolisthesis of L4 on L5 measures 7 mm. 2. No acute bony abnormality. 3. No pars defects. Dictated by: Karlo Mullins M.D. on 05/17/2023 at 10:14 Approved by: Karlo Mullins M.D. on 05/17/2023 at 10:16
== END ==
PROVIDERS: PCP Family Medicine; Referring Provider Physical Medicine & Rehabilitation; Visit Provider Physical Medicine & Rehabilitation
DX: M47.816 Spondylosis without myelopathy or radiculopathy, lumbar region (principal); M43.16 Spondylolisthesis, lumbar region; M54.9 Dorsalgia, unspecified
CPT/HCPCS: 72110

== ENCOUNTER → 2023-05-22 09:05 | Outpatient (CLI) | payer OTHER, SELFPAY ==
--- NOTE | 2023-05-22 09:07 | DI.MRI.S_ITS ---
PROCEDURE: MR LUMBAR SPINE WO CON INDICATIONS: L4-5 spondylolisthesis TECHNIQUE: Noncontrast sagittal T1 spin echo and T2 fast echo, sagittal STIR, and T2 fast spin echo through the lumbar spine. In cases with scoliosis, additional coronal T2 fast spin echo may be performed. COMPARISON: [facility], MR, L-SPINE WITHOUT CONTRAST, 10/03/2008, 18:30. [facility], CR, XR LUMBAR SPINE MIN 4V, 05/17/2023, 8:31. FINDINGS: Image quality: Excellent. Alignment and Curvature: There is grade 1 anterolisthesis seen at the L4-L5 level, without associated pars defects. Minimal retrolisthesis can be seen at L5-S1. Bone Marrow: Marrow is of normal overall signal. No acute vertebral body compression fractures. Spinal Cord: Conus medullaris terminates at the L1 level. Visualized cord demonstrates normal signal and size. Paraspinous Soft Tissues: No paravertebral masses. T12-L1: Moderate loss of disc height is seen. Loss of disc signal is seen. Mild generalized disc bulge is seen. No significant neural foraminal or central canal narrowing can be seen. When comparison is made with the prior images, these findings are similar. L1-L2: The disc height and disk signal are relatively well-preserved. Mild disc bulge is seen, with a central/right disc protrusion. No significant neural foraminal or central canal narrowing can be seen. These degenerative changes are worse than in 2009. L2-L3: The disc height is well-preserved. Loss of disc signal is seen at this level. Mild generalized disc bulge is seen. There is a mild central disc protrusion. Moderate facet hypertrophy is seen, left worse than right. There is [id number] right-sided and no left-sided neural foraminal narrowing. Mild central canal narrowing is seen. These imaging findings have progressed compared to the prior study. L3-L4: The disc height is well-preserved. Loss of disc signal is seen at this level. A mild degree of generalized disc osteophyte complex is seen. There is a superimposed central disc protrusion. There is a focal annular fissure seen posteriorly. Moderate facet joint hypertrophy is seen. No significant neural foraminal narrowing is seen. Mild central canal narrowing is seen. L4-L5: The disc height is well-preserved. Loss of disc signal is seen at this level. Moderate generalized disc bulge is seen. There is a superimposed central disc protrusion. At least moderate facet hypertrophy is seen at this level. At least moderate bilateral neural foraminal narrowing can be seen. There is a degree of compression seen upon the exiting nerve roots. There is at least moderate central canal narrowing seen, as on series 5, image 27. These degenerative changes are clearly progressed compared to 2009. L5-S1: Moderate loss of disc height is seen. Loss of disc signal is seen. Moderate disc bulge is seen, which is eccentric to the left. Mild facet joint hypertrophy is seen. There is moderate left-sided and [id number] right-sided neural foraminal narrowing. No central canal narrowing is seen. When comparison is made with the prior images, these findings are similar. IMPRESSION: Multiple levels of lumbar spine degenerative change can be seen, which are progressed compared to 2009. Dictated by: Luis Reyes M.D. on 05/22/2023 at 15:23 Approved by: Luis Reyes M.D. on 05/22/2023 at 15:28
== END ==
PROVIDERS: PCP Nurse Practitioner; Referring Provider Physical Medicine & Rehabilitation; Visit Provider Physical Medicine & Rehabilitation
DX: M43.16 Spondylolisthesis, lumbar region (principal); M47.816 Spondylosis without myelopathy or radiculopathy, lumbar region; M47.817 Spondylosis without myelopathy or radiculopathy, lumbosacral region
CPT/HCPCS: 72148

== ENCOUNTER 2023-06-15 08:02 | Outpatient (CLI) | payer OTHER, SELFPAY ==
[2023-06-15] VITALS (8 sets, daily range): BP systolic 136–175; BP diastolic 66–79; PULSE 58–72; RESP 15–30; O2SAT 99–100
--- NOTE | 2023-06-15 08:45 | DI.RAD.S_ITS ---
PROCEDURE: PAIN L/S FACET INJ/BLK 1ST ERYN INDICATIONS: SPONDYLOSIS COMPARISON: None. FINDINGS: Fluoroscopic spot filming was performed to verify placement of spinal needles at the bilateral L4, L5, and S1 level(s), as labeled on the films. Appropriate location(s) of the needle tip(s) was confirmed by injection of iodinated contrast. IMPRESSION: Fluoroscopic support for bilateral lumbosacral injections. Please see separate procedure note for further details. Dictated by: Trent Brandt M.D. on 06/15/2023 at 10:53 Approved by: Trent Brandt M.D. on 06/15/2023 at 10:54
[2023-06-15] MEDS: MIDAZOLAM 2 MG/2 ML VIAL IV (08:50)
[2023-06-15] MEDS: iopamidoL 15 ML VIAL 3 ML INJ (08:58)
[2023-06-15] MEDS: BUPIVACAINE 0.5% (PF) 10 ML VIAL 5 ML INJ (08:59)
[2023-06-15] MEDS: LIDOCAINE 1% 20 ML 5 ML INJ (08:59)
--- NOTE | 2023-06-15 09:09 | P.PCN_ITS ---
Date/Time/Diagnoses Date of procedure: 06/15/23 Time of procedure: 09:09 Pre-procedure diagnosis: 1. FACET ARTHROPATHY Post-procedure diagnosis: same Procedure Notes Procedure: 1. BILATERAL- L4, L5 and S1 DIAGNOSTIC MB BLOCKS with LA Anesthetic Indications: Valerie is referred by Dr. Burns for treatment of Bilateral Axial LBP. Physician: Adelso Gandhi Total Fluoroscopy time (seconds): 8 Total sedation minutes: 16 Complications: none Procedure in detail & Post-procedure care: DESCRIPTION OF PROCEDURE Fluoroscopically guided, contrast-controlled bilateral L4, L5 and S1 medial branch blocks with 0.5cc of 0.5% Marcaine. Following review of allergy and review of potential side effects and complications, including, but not necessarily limited to, infection, allergic reaction, local tissue breakdown, nerve injury, paralysis, stroke and possible , the patient indicated that the patient understood and agreed to proceed. An informed consent document was signed by the patient, witnessed by a nurse, and placed in the patient's chart. After review of previous anaesthesic history and IV conscious sedation the patient was deemed safe to proceed with today's procedure with IV conscious sedation as ASA class II designation. Safety time-out was performed to confirm patient ID, procedure to be performed and site of procedure. IV sedation was accomplished with a combination of 2mg of Versed was administered by the RN after DO order, titrated to patient comfort during the course of the procedure while the patient remained responsive to all verbal commands In the prone position, following sterile prep and drape of the lumbar region, the right L4, L5 and S1 anatomical location of the medial branch of the dorsal ramus was identified fluoroscopically. Subsequently an anesthetic skin wheal us ing 1% lidocaine solution was initiated at each of the anatomical spots. Subsequently then a 22-gauge 3.5-inch spinal needle was atraumatically introduced and advanced under fluoroscopic guidance at each of the corresponding sites at the right L4, L5 and S1 MB. After negative aspiration, 0.2cc of Isovue 200 was injected, confirming placement without vascular or intrathecal uptake. Subsequently then 0.5cc of 0.5% Marcaine solution was injected at each of the corresponding sites at the right L4, L5 and S1 medial branch locations. The identical procedure was replicated on the left. The patient tolerated the procedure well without signs or symptoms of complications prior to transfer to the recovery area continued monitoring without incident. Post-procedure, the patient was monitored initiating provocative activities to measure the amount of relief from block of the facetogenic pain. The patient reported a VAS of 7 prior to the procedure and a post-procedure VAS of 1. It has been a pleasure to assist in the diagnostic and therapeutic care of your patient. POST OP INSTRUCTIONS The patient was provided with a Pain Log to complete over the next several hours and subsequent days prior to the patient's follow up with the ordering physician. If the patient has network infrastructure architect relief to the solution applied, then they may be a candidate for medial branch rhizotomy. The patient is aware, was provided, once again, with a Pain Log and will follow up with the referring physician for review and clinical correlation
== END 2023-06-15 09:30 | disposition home or self-care (01) ==
LOC: RAD 08:02
PROVIDERS: PCP Nurse Practitioner; Referring Provider Physical Medicine & Rehabilitation; Visit Provider Physical Medicine & Rehabilitation
DX: M47.816 Spondylosis without myelopathy or radiculopathy, lumbar region (principal); M47.817 Spondylosis without myelopathy or radiculopathy, lumbosacral region
CPT/HCPCS: 64493; 64494; J2250

== ENCOUNTER → 2024-02-21 14:00 | Outpatient (CLI) | payer OTHER, SELFPAY ==
--- NOTE | 2024-02-21 14:02 | DI.MG.S_ITS ---
BILATERAL DIGITAL SCREENING MAMMOGRAM 3D/2D WITH CAD: 02/21/2024 CLINICAL: Routine screening. Comparison is made to exams dated: 12/30/2022 mammogram, 12/10/2021 mammogram, and 11/03/2020 mammogram - [facility]. Both breasts are heterogeneously dense, which may obscure small masses (category c / 51-75% glandular tissue). Current study was also evaluated with a Computer Aided Detection (CAD) system. No significant masses, calcifications, or other findings are seen in either breast. There has been no significant interval change. IMPRESSION: NEGATIVE There is no mammographic evidence of malignancy. A 1 year screening mammogram is recommended. Based on the Tyrer Cuzick model (a risk assessment model) the patient's lifetime risk is 13.6% and her 10 year risk is 5.3%. According to the ACR, ACS, and NCCN guidelines, an annual breast MRI exam along with mammogram is recommended if the patient's lifetime risk is 20% or greater. This exam was interpreted at Station ID: [id number]. NOTE: For mammograms, a report in lay terms will be sent to the patient. Approximately 15% of breast malignancies will not be visualized mammographically. In the management of a palpable breast mass, a negative mammogram must not discourage biopsy of a clinically suspicious lesion. Electronically Signed By: Eladia carlos/mireya:02/21/2024 17:23:23 letter sent: Normal Exam ACR BI-RADS Category 1: Negative 3341F
== END ==
LOC: MAMMO 14:01
PROVIDERS: PCP Nurse Practitioner; Referring Provider Nurse Practitioner; Visit Provider Nurse Practitioner
DX: Z12.31 Encounter for screening mammogram for malignant neoplasm of breast (principal); R92.333 Mammographic heterogeneous density, bilateral breasts
CPT/HCPCS: 77063; 77067

== ENCOUNTER 2025-03-18 15:31 | Emergency (ER) | payer BC, SELFPAY ==
[2025-03-18] VITALS (10 sets, daily range): BP systolic 134–222; BP diastolic 72–98; PULSE 53–71; RESP 16–17; TEMP 37; O2SAT 98–100; BMI 21.2
--- NOTE | 2025-03-18 16:52 | DI.RAD.S_ITS ---
PROCEDURE: XR CHEST 1V INDICATIONS: suspected sepsis TECHNIQUE: One view of the chest was acquired. COMPARISON: None. FINDINGS: Surgical changes and devices: None. Lungs and pleura: Lungs are clear. No pleural effusions or pneumothorax. Mediastinum: Mediastinal contours appear normal. Heart size is normal. Bones and chest wall: No suspicious bony lesions. Overlying soft tissues appear unremarkable. IMPRESSION: No acute cardiopulmonary abnormality is seen. Dictated by: Karlo Mullins M.D. on 03/18/2025 at 17:49 Approved by: Karlo Mullins M.D. on 03/18/2025 at 17:50
--- NOTE | 2025-03-18 16:52 | EKG_ITS ---
[address] [address] Test Date: 2025-03-18 Pat Name: Valerie Jordan Department: Room: Gender: Female [facility] Counselor: JESSICA : 1965 Requested By: Order Number: [id number] Reading MD: Veto Garrison Measurements Intervals [place] Rate: 58 P: 77 MI: 160 QRS: 85 QRSD: 84 T: 69 QT: 436 QTc: 428 Interpretive Statements Sinus bradycardia Electronically Signed On 03-18-2025 17:31:32 PDT by Veto Garrison
[2025-03-18 17:18] LABS: Add Manual Diff / Slide Review NO; Hematocrit 45.8 % (36-46); Hemoglobin 15.6 g/dL (12.0-16.0); Lymphocytes Absolute Auto 1400 /uL (1100-4500); Mean Corpuscular HGB Conc 34.0 % (30-36); Mean Corpuscular Hemoglobin 30.6 PG (26-34); Mean Corpuscular Volume 90.0 fL (80-100); Platelet Count 205 X10^3/uL (150-400)
[2025-03-18 17:25] LABS: INR 0.9 (0.9-1.3); Prothrombin Time 10.7 SECONDS (9.4-12.5)
[2025-03-18 17:27] LABS: PTT Partial Thromboplastin Tim 27 SECONDS (25.1-36.5)
[2025-03-18 17:28] LABS: Alanine Aminotransferase 52 IU/L (<35); Albumin 5.0 g/dL (3.5-5.0); Albumin Globulin Ratio 1.3 (1.0-2.8); Alkaline Phosphatase 78 U/L (38-126); Blood Urea Nitrogen 12 mg/dL (7-17); Calcium 9.5 mg/dL (8.4-10.2); Carbon Dioxide 27 mmol/L (22-32); Chloride 102 mmol/L (98-107); Estimated Glomerular Filt Rate > 60 mL/min (>60); Globulin 3.9 g/dL (1.7-4.1); Glucose 77 mg/dL (70-99); HEMOLYSIS 28 (0-50); Lipase 98 U/L (23-300); Potassium 4.0 mmol/L (3.4-5.1); Sodium 139 mmol/L (137-145); Total Protein 8.9 g/dL (6.3-8.2)
[2025-03-18 17:29] LABS: Lactate (Lactic Acid) 1.0 mmol/L (0.7-2.1)
[2025-03-18 17:45] LABS: Procalcitonin 0.031 ng/mL (<0.5)
[2025-03-18] MEDS: SODIUM CHLORIDE 0.9% 1,000 ML 1000 ML IV (18:29)
--- NOTE | 2025-03-18 19:47 | DI.CT.S_ITS ---
PROCEDURE: CT UE LT W CON INDICATIONS: left forearm pain, infection, hardware in place TECHNIQUE: After the administration of intravenous contrast, 3 mm axial sections acquired of the forearm , with coronal and sagittal reformats. COMPARISON: [facility] [place], CR, XR WRIST 3+ VIEWS LEFT, 04/21/2022, 15:38. FINDINGS: Image quality: Prominent artifact limiting evaluation. Bones: ORIF of the radius is present. No distinct appearance of hardware fracture lucency. However, prominent artifact is present. Hardware has been removed from the ulna. There is good anatomic alignment. Soft tissues: No visualized enhancing fluid collections. Minimal subcutaneous stranding. IMPRESSION: Prominent artifact limiting evaluation. No definitive enhancing fluid collection. Minimal subcutaneous fat stranding. Radial diaphyseal ORIF. Hardware appears grossly intact. However, significant artifact is present limiting evaluation. Dictated by: Scarlett Moreno M.D. on 03/18/2025 at 21:51 Approved by: Scarlett Moreno M.D. on 03/18/2025 at 21:54
[2025-03-18] MEDS: KETOROLAC 30 MG/ML VIAL 15 MG IV (20:03)
[2025-03-18] MEDS: cefTRIAXone 2,000 MG in SODIUM CHLORIDE 0.9% 100 ML 200 MG IV (20:37)
--- NOTE | 2025-03-18 22:23 | ED.RECABL ---
HPI - Recheck/Abnormal Lab/Rx General Chief Complaint: Recheck/Abnormal Lab/Rx Stated Complaint: left arm infec. worsening on ABX Time Seen by Provider: 03/18/25 16:46 Source: patient Mode of arrival: Family Vehicle History of Present Illness HPI narrative: 60-year-old woman with a history of hypothyroidism distant forearm fracture with hardware in place was seen at [facility] urgent care on March 13 with warmth redness and concern for infection. She was started on doxycycline. Thought that the infection may have started with a black very brittle scratched the forearm. The redness has improved somewhat however pain and deeper bone pain has gotten significantly worse. She is not describing fevers or chills. There is no discharge. She had a similar episode about a year ago and ended up having for courses of oral antibiotics and eventually orthopedic surgery to remove 1 of the hardware plates. There is still another plate in place. Comes in for further evaluation. Related Data Home Medications ?Medication ?Instructions ?Recorded ?Confirmed levothyroxine 88 mcg tablet 88 mcg PO DAILY 06/10/19 09/25/24 naproxen sodium 220 mg capsule 220 mg PO Q12H PRN 05/17/23 09/25/24 (Aleve) meloxicam 15 mg tablet 15 mg PO DAILY 09/25/24 09/25/24 Previous Rx's ?Medication ?Instructions ?Recorded sulfamethoxazole 800 1 tab PO BID #14 tabs 03/18/25 mg-trimethoprim 160 mg tablet (Bactrim DS) Allergies Allergy/AdvReac Type Severity Reaction Status Date / Time meloxicam AdvReac Intermediate lethargic Verified 03/18/25 15:50 steroids AdvReac Intermediate ITCHING Uncoded 03/18/25 15:50 Review of Systems Review of Systems Narrative: Pertinent positive and negative findings as per HPI Patient History Medical History Facet arthropathy, lumbar Spondylolisthesis at L4-L5 level alcohol intake frequency: 0-2 drinks per day Exam Initial Vital Signs Initial Vital Signs: Vital Signs Temperature 98.6 F 03/18/25 15:48 Pulse Rate 71 03/18/25 15:48 Respiratory Rate 16 03/18/25 15:48 Blood Pressure 134/86 03/18/25 15:48 Pulse Oximetry 99 03/18/25 15:48 Oxygen Delivery Method Room Air 03/18/25 15:48 General: Alert appropriate in no acute distress Respiratory: Able to speak in full sentences, no obvious respiratory distress Skin: No obvious rashes, warm and dry Neurologic: Grossly intact no obvious asymmetries or abnormalities Psych: appropriate insight and affect, cooperative Extremity: Left forearm does not have significant swelling redness or erythema. There is approximately 1 cm in diameter area of tenderness with firmness underneath likely the area of the initial black very but rambles scratch without evidence of fluctuance or persistent foreign body. She does not have pain with flexion or extension of her wrist. She is neurovascularly intact. Course Orders Ordered: ED Orders 03/18/25 16:52 XR chest 1V Stat EKG-12 Lead Stat RT Consult Eval and Treat NOW 03/18/25 17:06 CRP [C-Reactive Protein Quant] Stat Complete Blood Count AUTO DIFF Stat Comprehensive Metabolic Panel Stat Erythrocyte Sedimentation Rate Stat Lactate (Lactic Acid) Stat Lipase Stat PTT Partial Thromboplastin Patric Stat Procalcitonin Stat Prothrombin Time INR Stat 03/18/25 17:35 Blood Culture Stat 03/18/25 19:47 CT UE LT w con Stat Ondansetron HCl (Ondansetron 4 Mg/2 Ml Inj) 4 mg IV NOW PRN PRN Reason: Nausea And Vomiting Ondansetron HCl (Ondansetron 4 Mg Odt) 4 mg PO NOW PRN PRN Reason: Nausea And Vomiting Discontinued Medications Sodium Chloride (Normal Saline 0.9%) 1,000 mls @ 1,000 mls/hr IV BOLUS ONE Stop: 03/18/25 17:51 Last Infusion: 03/18/25 19:49 Dose: Infused Documented By: Infusion: 03/18/25 18:41 Dose: 1,000 mls/hr Documented By: Infusion: 03/18/25 18:36 Dose: 0 mls/hr Documented By: Admin: 03/18/25 18:29 Dose: 1,000 mls/hr Documented By: MEHRAN Ceftriaxone Sodium 2,000 mg/ (Sodium Chloride) 100 mls @ 200 mls/hr IV NOW ONE Stop: 03/18/25 20:12 Last Infusion: 03/18/25 21:33 Dose: Infused Documented By: Admin: 03/18/25 20:37 Dose: 200 mls/hr Documented By: MEHRAN Ketorolac Tromethamine (Ketorolac 30 Mg/Ml Vial) 15 mg IV NOW ONE Stop: 03/18/25 19:48 Last Admin: 03/18/25 20:03 Dose: 15 mg Documented By: [facility] Vital Signs Vital signs: Vital Signs - 8 hr 03/18/25 15:48 03/18/25 18:40 03/18/25 18:40 Temperature 98.6 F Pulse Rate 71 57 L Respiratory Rate 16 17 Blood Pressure 134/86 199/98 H Pulse Oximetry 99 100 Oxygen Delivery Method Room Air Room Air 03/18/25 19:00 03/18/25 19:00 03/18/25 19:13 Temperature Pulse Rate 57 L 60 Respiratory Rate Blood Pressure 222/97 H Pulse Oximetry 100 100 Oxygen Delivery Method 03/18/25 19:13 03/18/25 19:30 03/18/25 19:30 Temperature Pulse Rate 61 Respiratory Rate Blood Pressure 206/88 H 193/86 H Pulse Oximetry 99 Oxygen Delivery Method 03/18/25 19:49 03/18/25 19:49 03/18/25 20:00 Temperature Pulse Rate 64 69 Respiratory Rate Blood Pressure 204/84 H Pulse Oximetry 99 99 Oxygen Delivery Method Room Air 03/18/25 20:00 03/18/25 20:30 03/18/25 20:30 Temperature Pulse Rate 59 L Respiratory Rate Blood Pressure 180/86 H 152/72 H Pulse Oximetry 98 Oxygen Delivery Method MDM - Recheck/Abnormal Lab/Rx Lab Data 03/18/25 17:06 03/18/25 17:06 Labs: Lab Results 03/18/25 Range/Units 17:06 WBC 4.3 L (4.5-11.0) X10^3/uL RBC 5.08 (4.0-5.2) X10^6/uL Hgb 15.6 (12.0-16.0) g/dL Hct 45.8 (36-46) % MCV 90.0 (80-100) fL MCH 30.6 (26-34) PG MCHC 34.0 (30-36) % RDW 12.7 (11.6-14.8) % Plt Count 205 (150-400) X10^3/uL Neut % (Auto) 59.1 (50-75) % Lymph % (Auto) 32.9 (25-40) % [place] % (Auto) 5.8 (3-14) % Eos % (Auto) 1.4 L (2-4) % Baso % (Auto) 0.8 (0-2) % Neut # (Auto) 2500 (0458-4409) /uL Lymph # (Auto) 1400 (5147-5248) /uL [place] # (Auto) 300 (0-900) /uL Eos # (Auto) 100 (0-450) /uL Baso # (Auto) 0 (0-100) /uL ESR 6 (0-20) MM/HR PT 10.7 (9.4-12.5) SECONDS INR 0.9 (0.9-1.3) APTT 27 (25.1-36.5) SECONDS Sodium 139 (137-145) mmol/L Potassium 4.0 (3.4-5.1) mmol/L Chloride 102 (98-107) mmol/L Carbon Dioxide 27 (22-32) mmol/L BUN 12 (7-17) mg/dL Creatinine 0.60 (0.52-1.04) mg/dL Estimated GFR > 60 (>60) mL/min BUN/Creatinine Ratio 20.0 (6-22) Glucose 77 (70-99) mg/dL Lactate 1.0 (0.7-2.1) mmol/L Calcium 9.5 (8.4-10.2) mg/dL Total Bilirubin 0.4 (0.2-1.3) mg/dL AST 58 H (14-36) IU/L ALT 52 H (<35) IU/L Alkaline Phosphatase 78 (38-126) U/L C-Reactive Protein < 0.5 (<1.0) mg/dL Total Protein 8.9 H (6.3-8.2) g/dL Albumin 5.0 (3.5-5.0) g/dL Globulin 3.9 (1.7-4.1) g/dL Albumin/Globulin Ratio 1.3 (1.0-2.8) Lipase 98 (23-300) U/L Procalcitonin 0.031 (<0.5) ng/mL Urine Dip Bedside Urine Glucose Negative Bedside Urine Bilirubin - Negative Bedside Urine Ketone - Negative Urine Specific Gallagher 1.015 Bedside Urine Occult Blood - Negative Bedside Urine pH 6.0 Bedside Urine Protein - Negative Bedside Urine Urobilinogen - Negative Bedside Urine Nitrite - Negative Bedside Urine Leukocytes - Negative Esterase Imaging Data CT upper extremity: Radiologist's Impression: PROCEDURE: CT UE LT W CON INDICATIONS: left forearm pain, infection, hardware in place TECHNIQUE: After the administration of intravenous contrast, 3 mm axial sections acquired of the forearm , with coronal and sagittal reformats. COMPARISON: [facility] [place], CR, XR WRIST 3+ VIEWS LEFT, 04/21/2022, 15:38. FINDINGS: Image quality: Prominent artifact limiting evaluation. Bones: ORIF of the radius is present. No distinct appearance of hardware fracture lucency. However, prominent artifact is present. Hardware has been removed from the ulna. There is good anatomic alignment. Soft tissues: No visualized enhancing fluid collections. Minimal subcutaneous stranding. IMPRESSION: Prominent artifact limiting evaluation. No definitive enhancing fluid collection. Minimal subcutaneous fat stranding. Radial diaphyseal ORIF. Hardware appears grossly intact. However, significant artifact is present limiting evaluation. Dictated by: Scarlett Moreno M.D. on 03/18/2025 at 21:51 MDM Narrative Medical decision making narrative: 60-year-old woman with increasing left forearm pain. Was felt to have a cellulitis has been on doxycycline for 4 days the redness swelling and warmth has decreased unfortunately the pain has increased and she is concerned that she again has not infection associated with the previous hardware in her forearm as she had experienced back in May of 2024 that required surgical removal of part of the hardware. CBC shows white count at 4.3 no left shift Chemistries show appropriate renal function with normal AST and ALT PT and PTT your unremarkable Sed rate is not elevated Procalcitonin is not elevated Lactic acid is not elevated C-reactive protein is not elevated At this point I believe that she does have a superficial forearm infection that is responding to doxycycline. Given previous history with infected hardware I am going to add Bactrim to her doxycycline she was given ceftriaxone in the emergency department. She has not appointment in 48 hours with the hand surgeon and will ask her to make sure she keeps that. She is given copies of CT scan results as worth blood test done today in the emergency department share with the hand surgeon. There was no sign sepsis no sign that she needs immediate surgical intervention or drainage and no indication for hospitalization. She states that she has access to Naprosyn meloxicam and Tylenol home and does not need any additional pain medication. She is safe for discharge Discharge Plan Departure Patient Disposition: Home Clinical Impression: Cellulitis of forearm, left Instructions: DI for Cellulitis -- Adult Activity Restrictions/Additional Instructions: Thank you for coming in today Your blood work today was actually reassuring. I am not seeing signs of severe systemic infection or infection that is spreading in any way. Inflammatory markers are also not elevated. You are given an additional dose of ceftriaxone in the emergency department. I have sent a prescription for Septra to add to your current doxycycline to [facility] for you to start tomorrow. I have given you copies of the blood work as well as CT scan that we did today to share with the hand surgeon with your appointment on , I do recommend that you keep that appointment. If you find that you are getting worse or develop any new symptoms, please feel free to return to the emergency department for further evaluation. Prescriptions: New sulfamethoxazole-trimethoprim [Bactrim DS] 800-160 mg tablet 1 tab PO BID Qty: 14 0RF No Action levothyroxine 88 mcg tablet 88 mcg PO DAILY Patient Comments: TAKE 1 TABLET (88 MCG TOTAL) BY MOUTH DAILY meloxicam 15 mg tablet 15 mg PO DAILY naproxen sodium [Aleve] 220 mg capsule 220 mg PO Q12H PRN Referrals: Mary Ellen Burns FNP-C [Primary Care Provider, Nursing] Stand Alone Forms: Patient Portal/API
== END 2025-03-18 22:59 | disposition home or self-care (01) ==
PROVIDERS: Emergency Provider Emergency Medicine; PCP Nurse Practitioner
DX: L03.114 Cellulitis of left upper limb (principal)
CPT/HCPCS: 36415; 71045; 73201; 80053; 81003; 83605; 83690; 84145; 85025; 85610; 85651; 85730; 86140; 87040; 93005; 96361; 96365; 96375; 99284; J0696; J1885; Q9967